=== PATIENT | male | born 1985 | race Caucasian/White ===

== ENCOUNTER 2016-05-25 16:56 | Emergency (ER) | payer OTHER ==
[2016-05-25 16:59] VITALS: BP 150/80; PULSE 90; RESP 20; TEMP 97
[2016-05-25] MEDS ORDERED: LIDOCAINE VISCOUS 2% 15 ML CUP MUCOUS MEM STA (17:09)
--- NOTE | 2016-05-25 17:13 | ED ---
ENT HPI - General Chief complaint: Dental/Oral Stated complaint: Dental Time Seen by Provider: 05/25/16 17:00 Source: patient, RN notes reviewed Mode of arrival: ambulatory Limitations: no limitations - History of Present Illness Initial comments: Patient is a 30-year-old male presents to the emergency room for evaluation of right lower dental pain and facial edema. Patient states that he's been having dental pain for the past 6 months. Patient states he went to his primary care provider about a week and a half ago and was placed on amoxicillin. Patient states he's been on amoxicillin for the past 15 days. Patient states last night he noticed swelling along his right lower jaw. Patient states the swelling has significantly increased over the day today. Patient states he's having increasing pain. Patient denies fevers or chills. Patient denies headache or dizziness. Patient states he didn't know what to do so he came to the emergency room. Patient denies any trouble breathing or shortness of breath. - Related Data Previous Rx's Medication Instructions Recorded Clindamycin [Cleocin] 300 mg PO Q6H 10 Days 05/25/16 HYDROcodone/APAP 5-325MG [[place] 1 tab PO Q6HR PRN #12 tab 05/25/16 5-325] Ibuprofen [Motrin] 600 mg PO Q6HR PRN #20 tab 05/25/16 Allergies Allergy/AdvReac Type Severity Reaction Status Date / Time No Known Allergies Allergy Verified 05/25/16 16:59 Review of Systems ROS Statement: Those systems with pertinent positive or pertinent negative responses have been documented in the HPI. ROS Other: All systems not noted in ROS Statement are negative. Past Medical History Past Medical History: No Reported History History of Any Multi-Drug Resistant Organisms: None Reported Past Surgical History: No Surgical Hx Reported Past Psychological History: No Psychological Hx Reported Smoking Status: Current every day smoker Past Alcohol Use History: None Reported Past Drug Use History: None Reported General Exam - General Exam Comments Initial Comments: Sitting in exam room, no acute distress. Limitations: no limitations General appearance: alert, in no apparent distress Head exam: Present: atraumatic, normocephalic, normal inspection Eye exam: Present: normal appearance Pupils: Present: normal accommodation ENT exam: Present: other (Right mandibular facial edema) Expanded Teeth exam: Present: dental caries (multiple), dental tenderness # (30, fluctuance on the outside of the tooth, consistent with abscess ) Neck exam: Present: normal inspection, full ROM. Absent: tenderness, lymphadenopathy Respiratory exam: Present: normal lung sounds bilaterally. Absent: respiratory distress Cardiovascular Exam: Present: regular rate, normal rhythm, normal heart sounds Extremities exam: Present: normal inspection Back exam: Present: normal inspection Neurological exam: Present: alert, oriented X3, CN II-XII intact, normal gait Psychiatric exam: Present: normal affect, normal mood Skin exam: Present: warm, dry, intact, normal color. Absent: rash Course Vital Signs 05/25/16 16:57 Temperature 97 F L Pulse Rate 90 Respiratory 20 Rate Blood Pressure 150/80 O2 Sat by Pulse 100 Oximetry Procedures - Incision & Drainage Consent Obtained: verbal consent Site: other (dental, tooth #30) Size (cm): 1 Anesthetic Used: lidocaine 1% (viscous lidocaine) Amount (mLs): 2 Needle Aspiration Performed?: Yes (18 guage) I&D Drainage Obtained: Pus, Blood Patient Tolerated Procedure: well, no complications Medical Decision Making - Medical Decision Making Patient is a 30-year-old male presents the emergency room for evaluation of dental abscess. Abscess was anesthetized with viscous lidocaine. Abscess was incised and drained with an 18-gauge needle. Purulent drainage formation from abscess. Will switch patient's antibiotics from amoxicillin to clindamycin. Advised patient to follow-up with a dentist as soon as possible. Advised patient to return for any worsening symptoms including difficulty in breathing or increased swelling. Patient states he understands everything that was discussed with him. Case discussed with Dr. Del Castillo. Disposition Clinical Impression: Dental abscess Disposition: HOME SELF-CARE Condition: Good Instructions: Dental Abscess (ED), Abscess Incision and Drainage (ED) Additional Instructions: Discontinue taking amoxicillin. Begin taking clindamycin as directed. Take ibuprofen as needed for pain. Take [place] as needed for severe pain. Please follow up with a dentist. If you do not have a dentist, you may contact [facility]. Phone number is [phone] for existing clients. For new clients you may call [phone]. Another option is you have is the [employer] dental [facility]. Phone number is [phone]. [place] gargles. Cold fluids can sometimes help with pain as well. Return to the Emergency Room for any worsening or changing symptoms. Use cold compresses to the outside of the face. Prescriptions: HYDROcodone/APAP 5-325MG [[place] 5-325] 1 tab PO Q6HR PRN #12 tab PRN Reason: Pain Ibuprofen [Motrin] 600 mg PO Q6HR PRN #20 tab PRN Reason: Pain Clindamycin [Cleocin] 300 mg PO Q6H 10 Days Referrals: None,Stated [Primary Care Provider] - 1-2 days Time of Disposition: 17:32
== END 2016-05-25 17:52 | disposition home or self-care (01) ==
LOC: EC 16:56
DX: K04.7 Periapical abscess without sinus (principal); F17.200 Nicotine dependence, unspecified, uncomplicated
CPT/HCPCS: 41800; 99282

== ENCOUNTER 2016-05-29 15:21 | Emergency (ER) | payer OTHER ==
[2016-05-29 15:33] VITALS: BP 128/80; PULSE 85; RESP 18; TEMP 97.4
--- NOTE | 2016-05-29 16:31 | ED ---
General Adult HPI - General Chief complaint: Dental/Oral Stated complaint: Dental Time Seen by Provider: 05/29/16 16:09 Source: patient, RN notes reviewed Mode of arrival: ambulatory Limitations: no limitations - History of Present Illness Initial comments: is a 30-year-old male who presents with left-sided dental pain 2 days. Patient states he had a tooth on the right side pulled today. Patient denies any fever/chills. Patient states the dentist knows about the left-sided dental pain but states he cannot pull this tooth for another week. Patient is currently on clindamycin for these dental issues. Patient is here for medication refills stating his dentist did not give him any pain medication. Patient denies any recent shortness breath, chest pain, abdominal pain, nausea/ vomiting/diarrhea, back pain, numbness, tingling, hematuria, headache, or visual changes, or any other complaints. - Related Data Previous Rx's Medication Instructions Recorded Clindamycin [Cleocin] 300 mg PO Q6H 10 Days 05/25/16 HYDROcodone/APAP 5-325MG [[place] 1 tab PO Q6HR PRN #12 tab 05/25/16 5-325] Ibuprofen [Motrin] 600 mg PO Q6HR PRN #20 tab 05/25/16 Ibuprofen [Motrin] 400 mg PO Q4H 5 Days 05/29/16 traMADol HCL [Ultram] 50 mg PO Q6HR #8 tab 05/29/16 Allergies Allergy/AdvReac Type Severity Reaction Status Date / Time No Known Allergies Allergy Verified 05/29/16 16:01 Review of Systems ROS Statement: Those systems with pertinent positive or pertinent negative responses have been documented in the HPI. ROS Other: All systems not noted in ROS Statement are negative. Past Medical History Past Medical History: No Reported History History of Any Multi-Drug Resistant Organisms: None Reported Past Surgical History: No Surgical Hx Reported Past Psychological History: No Psychological Hx Reported Smoking Status: Current every day smoker Past Alcohol Use History: None Reported Past Drug Use History: None Reported General Exam - General Exam Comments Initial Comments: General: The patient is awake and alert, in no distress, and does not appear acutely ill. Mouth and throat: The right side tooth #30 recently extracted. No sign of infection. There is pain to the left side tooth #18 that is fractured, there is no erythema, abscess or purulent drainage. There are moist mucous membranes and no oral lesions. Neck: The neck is supple, there is no tenderness or JVD. Cardiovascular: There is a regular rate and rhythm. No murmur, rub or gallop is appreciated. Respiratory: Lungs are clear to auscultation, respirations are non-labored, breath sounds are equal. No wheezes, stridor, rales, or rhonchi. Musculoskeletal: Normal ROM, no tenderness. Strength 5/5. Sensation intact. Radial pulses equal bilaterally 2+. Neurological: A&O x 3. CN II-XII intact, There are no obvious motor or sensory deficits. Coordination appears grossly intact. Speech is normal. Skin: There is some mild right-sided facial swelling over the lower jaw line and recent tooth extraction. There is no left-sided facial swelling. Skin is warm and dry and no rashes or lesions are noted. Psychiatric: Cooperative, appropriate mood & affect, normal judgment. Limitations: no limitations Course Vital Signs 05/29/16 15:27 Temperature 97.4 F L Pulse Rate 85 Respiratory 18 Rate Blood Pressure 128/80 O2 Sat by Pulse 99 Oximetry Medical Decision Making - Medical Decision Making This is a 30-year-old male who presents for refills of pain medication after tooth extraction. On physical exam The right side tooth #30 recently extracted. No sign of infection. There is pain to the left side tooth #18 that is fractured, there is no erythema, abscess or purulent drainage. There are moist mucous membranes and no oral lesions. Patient is afebrile in the EC. I discussed the patient that I will refill his ibuprofen and give him a prescription for tramadol. I discussed follow-up with his dentist/PCP or return to the EC for any worsening symptoms or further concerns. Discussed return parameters. Patient was receptive to this plan patient will be discharged home. Disposition Clinical Impression: Pain, dental, Hx of tooth extraction Disposition: HOME SELF-CARE Condition: Good Instructions: Toothache (ED) Additional Instructions: Please continue clindamycin. Please use medications as prescribed. Please continue to follow up with your dentist.[facility] dental plan: [id number] [place] [address], . [employer] [facility]: Have to pay $50 for x-rays and the rest is covered. [phone]. Please use medication as discussed. Please follow-up with family doctor in the next 2 days of symptoms have not improved. Please return to emergency room if the symptoms increase or worsen or for any other concerns. Prescriptions: Ibuprofen [Motrin] 400 mg PO Q4H 5 Days traMADol HCL [Ultram] 50 mg PO Q6HR #8 tab Referrals: Bebe Stahl MD [Primary Care Provider] - 1-2 days Time of Disposition: 16:31
== END 2016-05-29 16:40 | disposition home or self-care (01) ==
LOC: EC 15:21
DX: S02.5XXA Fracture of tooth (traumatic), initial encounter for closed fracture (principal); X58.XXXA Exposure to other specified factors, initial encounter; Z98.818 Other dental procedure status; F17.200 Nicotine dependence, unspecified, uncomplicated
CPT/HCPCS: 99282

== ENCOUNTER 2016-07-17 22:18 | Emergency (ER) | payer OTHER ==
[2016-07-17 22:56] VITALS: BP 123/64; PULSE 96; RESP 16; TEMP 97.8
== END 2016-07-17 23:43 | disposition home or self-care (01) ==
LOC: EC 22:18
DX: Z02.89 Encounter for other administrative examinations (principal)
CPT/HCPCS: 99281